=== PATIENT | male | born 1960 | race Caucasian/White ===

== ENCOUNTER → 2017-10-25 | Outpatient (CLI) | payer OTHER ==
[~2017-10-25] MED LIST: FENOFIBRATE160 M1 PO; FISH OIL 1,2001 EAC3 PO; FLEXERIL10 MG PO; GLUCOSAMINE H1500 MG PO; HYZAAR 100-21 TABLET PO; LO-DOSE ASPIRIN81 M1 PO; LORTAB 5-325 M1 EACH PO; MOTRIN800 MG PO; MULTIPLE VITAM1 EAC1 PO; NEOMYCIN SULFA500 MG PO; PCE500 MG PO; PREDNISONE10 MG PO
== END | disposition home or self-care (01) ==
LOC: CDC 10:04
DX: Z01.810 Encounter for preprocedural cardiovascular examination (principal)
CPT/HCPCS: 93000

== ENCOUNTER 2017-10-31 22:00 | Inpatient (IN) | payer OTHER ==
[~2017-10-31] VITALS: Ht 180.3 cm; Wt 105.5 kg
[2017-11-01 06:51] VITALS: BP 112/78
[2017-11-01] MEDS ORDERED: SEPTRA DS TABL1 EACH PO (10:38)
[2017-11-01] MEDS ORDERED: NORCO 5/3251 TABLET PO (10:38)
[2017-11-01 15:20] VITALS: BP 109/63
[2017-11-01 15:36] LABS: HEMATOCRIT 38.8 % (38.0-50.0); HEMOGLOBIN 13.9 G/DL (12.5-16.6); MCV 83.3 FL (86-99)
[2017-11-01 23:20] VITALS: BP 110/59
[2017-11-02 07:29] VITALS: BP 118/67
[2017-11-02 16:21] VITALS: BP 148/80
[2017-11-02 20:29] VITALS: BP 128/68
[2017-11-02 23:55] VITALS: BP 138/72
[2017-11-03 04:00] VITALS: BP 128/68
[2017-11-03 07:58] VITALS: BP 119/67
[2017-11-03 11:46] VITALS: BP 140/68
== END 2017-11-03 15:14 | disposition home or self-care (01) | DRG 708 ==
LOC: 2SOUTH → ENRESERV 22:00 → 2SOUTH 11-01 05:20 → ENRESERV 11-01 12:24 → 5EAST 11-01 15:07
PROVIDERS: Urology
PROC: 07BC0ZX Excision of Pelvis Lymphatic, Open Approach, Diagnostic (ICD-10-PCS; principal; 2017-11-01)
PROC: 0VT00ZZ Resection of Prostate, Open Approach (ICD-10-PCS; principal; 2017-11-01)
DX: C61 Malignant neoplasm of prostate (principal); I10 Essential (primary) hypertension; E78.5 Hyperlipidemia, unspecified; Z79.82 Long term (current) use of aspirin; Z87.891 Personal history of nicotine dependence
CPT/HCPCS: 85014; 85018; 88305; 88309; J0131; J1170; J1335; J1885; J2250; J2370; J2405; J2710; J2765; J3010; J7050; J7120

== ENCOUNTER → 2018-03-27 | Outpatient (CLI) | payer OTHER ==
[~2018-03-27] MED LIST changes: +NORCO 5/3251 TABLET PO; +SEPTRA DS TABL1 EACH PO
== END | disposition home or self-care (01) ==
LOC: NUC 09:40
DX: M19.072 Primary osteoarthritis, left ankle and foot (principal); M19.071 Primary osteoarthritis, right ankle and foot; R93.7 Abnormal findings on diagnostic imaging of other parts of musculoskeletal system
CPT/HCPCS: 78306; A9503